=== PATIENT | male | born 1960 | race Caucasian/White ===

== ENCOUNTER 2022-03-13 06:58 | Observation (INO) ==
--- NOTE | 2022-03-13 07:30 | History & Physical Bridge Note ---
Date of Service March 13, 2022 History & Physical Bridge Note I have examined the patient, reviewed the History & Physical and in the interval since the performance of the History & Physical I have noted the following changes of clinical significance: no changes noted
--- NOTE | 2022-03-13 07:34 | Pre Anesthesia Assessment ---
Date of Service March 13, 2022 Pre Sedation Assessment Vital Signs Pulse Resp BP Pulse Ox O2 Del Method 03/13/22 07:11 76 16 136/96 98 Room Air Cardiovascular + regular rate and + regular rhythm + S1 normal and + S2 normal; no murmur no JVD and no carotid bruit no edema Respiratory normal respiratory effort, lungs clear to auscultation Pre-Sedation Airway Assessment Smoking Status: Former smoker Hx Sleep Apnea: No Short, Thick Neck: No Thyromental Distance: > or= 3.5 Finger Breadths Oral Cavity: + WNL Mallampati Class: III ASA: ASA3 NPO Status Date of Last Intake of Fluids: 03/13/22 Time of Last Intake of Fluids: 06:00 Date of Last Intake of Solid Food: 02/12/22 Time of Last Intake of Solid Foods: 21:00 Procedure Planning Contraindications for Sedation: none Current Medications Reviewed: Yes Notes The planned sedation has been discussed with the patient. Informed Consent was obtained. I have identified the patient, determined the appropriateness of sedation and have assessed the patient immediately prior to the procedure. All medicine(s) and interventions are by my order.
[2022-03-13] MEDS ORDERED: niCARdipine HCL INJ 2.5 MG/ML 10 ML AMP ONE (07:42)
[2022-03-13] MEDS ORDERED: HEPARIN (PORCINE) 1000 UNIT/ML 10 ML (CATH LAB USE ONLY) ONE (07:42)
[2022-03-13] MEDS ORDERED: fentaNYL citrate 100 MCG/2 ML VIAL ONE (07:43)
[2022-03-13] MEDS ORDERED: MIDAZOLAM HCL 1 MG/ML 2ML VIAL ONE ×2 (07:44→08:59)
[2022-03-13] MEDS ORDERED: NITROGLYCERIN/D5W 100MCG/ML 20ML SYR ONE (07:45)
--- NOTE | 2022-03-13 09:28 | Post Anesthesia Assessment ---
Date of Service March 13, 2022 Post Sedation Assessment Vital Signs Pulse Resp BP Pulse Ox O2 Del Method 03/13/22 07:11 76 16 136/96 98 Room Air Recovery Score Activity: Moves 4 extremities Respiration: Deep Breath/Cough Circulation: +/-20% PreAnes Value Oxygen Saturation: > 92% On Room Air Discharge Sedation Level of Care: Phase I Post Sedation Plan On clinical assessment, the patient appears to have tolerated the sedation without complications. Patient is recovering as anticipated. Patient will continue to be monitored by nursing and may be discharged when sedation discharge criteria are met per below protocol. Upon Completions of procedure up to 15 minutes continue every 5 minute vital signs and the P.A.R. score; then discharge to a Phase I or Fast Track to Phase II per the following guidelines: * Discharge Patient to appropriate Phase II area if PAR is 8 or greater or return to pre- procedure baseline. The post - procedure orders will be as directed. * If PAR score is less than 8 or not return to pre-procedure baseline then patient will follow Phase I monitoring till PAR is reached for Phase II. The Phase I may be done in procedure room or may call to secure a Phase I area. * If naloxone or flumazenil are used for reversal, hold in Phase I for continued monitoring from when last reversal dose was given for a minimum of 60 minutes or longer pending the nurse and/or physician discretion of patient condition before discharge to Phase II. Please call the Sedation Physician to re-evaluate and complete post-note for discharge to Phase II area. Do NOT discharge from procedure sedation or Phase 1 until post- sedation evaluation note is complete by procedure /sedation MD Sedation Discharge Instructions to be given to the patient at discharge to home.
[2022-03-13] MEDS ORDERED: TICAGRELOR 90 MG TAB ONE (09:33)
--- NOTE | 2022-03-13 09:41 | Cardiac Catheterization ---
Cardiac Cath Procedure Full Procedure Date March 13, 2022 Pre-Procedure Diagnosis Pre-Procedure Diagnosis: Angina and Positive Stress Test AUC Score AUC Score: 7 Post-Procedure Diagnosis Post-Procedure Diagnosis: Severe CAD and Normal Intracardiac Pressures Procedure(s) Performed Procedure(s) Performed: Coronary Angiography and Left Heart Cath Receiving Inspector Conner Bautista DO Flat Folding Machine Operator(s) Ryan RTTita Estimated Blood Loss Estimated Blood Loss: 5cc Medication(s) Medication(s): Fentanyl, Heparin, Lidocaine 1%, Nicardipine, Nitroglycerin and Versed Summary of Findings Severe proximal LAD, 99% Hemodynamics Rest Ao:: 87/57/70 Final Ao: 97/54/73 LV: 97/-3/8 Recommendations Recommendations: PCI without planned CABG Specimens Specimens: None Radiation Exposure (mGy) 649 Contrast (mls) 25 Fluids (cc crystalloids) Fluids (cc crystalloids): 105 Nss Drains Drains: N/A Anesthesia Moderate sedation. Start 0841. End 0856. Sedation monitor: Lorri WINN. Procedural Complication(s) None Disposition Process Improvement Engineer Holding/Recovery I attest to the content of the Intraoperative Record and any orders documented therein. Any exceptions are noted below. ACC Data: Process Improvement Engineer Cardiac Status Clinical evaluation leading to the procedure Schedule patient present for outpatient evaluation due to chest discomfort. Exercise stress echo demonstrating LAD territory ischemia. CAD Presenation: Stable angina Anginal Classification: CCS II Heart Failure: No Stress Echocardiogram: Yes - Positive and Risk/Extent of Ischemia (High) Coronary Anatomy Dominant: Right Left Main (% Stenosis): Normal LAD (% Stenosis): Proximal (99%) and Mid (20%) D1 (% Stenosis): Mid (10%) D2 (% Stenosis): Mid (Mild luminal irregularities, 10%, Small vessel.) Circumflex (% Stenosis): Proximal (10%) OM1 (% Stenosis): Mid (50%, small vessel) RCA (% Stenosis): Proximal (20%), Mid (30%) and Distal (20%) R PDA (% Stenosis): Distal (30%) R PL1 (% Stenosis): Normal R PL2 (% Stenosis): Normal Ramus (% Stenosis): Normal Diagnostic Physicians Name: Conner Bautista DO Closure Device Recommendations: PCI without planned CABG Intraprocedure Events Significant Disection: No Perforation: No
--- NOTE | 2022-03-13 09:50 | Post Anesthesia Assessment ---
Date of Service March 13, 2022 Post Sedation Assessment Vital Signs Pulse Resp BP Pulse Ox O2 Del Method 03/13/22 07:11 76 16 136/96 98 Room Air Recovery Score Activity: Moves 4 extremities Respiration: Deep Breath/Cough Circulation: +/-20% PreAnes Value Consciousness: Fully Awake Oxygen Saturation: > 92% On Room Air Discharge Sedation Level of Care: Phase I Post Sedation Plan On clinical assessment, the patient appears to have tolerated the sedation without complications. Patient is recovering as anticipated. Patient will continue to be monitored by nursing and may be discharged when sedation discharge criteria are met per below protocol. Upon Completions of procedure up to 15 minutes continue every 5 minute vital signs and the P.A.R. score; then discharge to a Phase I or Fast Track to Phase II per the following guidelines: * Discharge Patient to appropriate Phase II area if PAR is 8 or greater or return to pre- procedure baseline. The post - procedure orders will be as directed. * If PAR score is less than 8 or not return to pre-procedure baseline then patient will follow Phase I monitoring till PAR is reached for Phase II. The Phase I may be done in procedure room or may call to secure a Phase I area. * If naloxone or flumazenil are used for reversal, hold in Phase I for continued monitoring from when last reversal dose was given for a minimum of 60 minutes or longer pending the nurse and/or physician discretion of patient condition before discharge to Phase II. Please call the Sedation Physician to re-evaluate and complete post-note for discharge to Phase II area. Do NOT discharge from procedure sedation or Phase 1 until post- sedation evaluation note is complete by procedure /sedation MD Sedation Discharge Instructions to be given to the patient at discharge to home. [facility] Procedure Codes (Charges) Indication for Procedure Indication for procedure: angina, severe CAD Sedation/Anesthesia Procedure 1: Sedation/Anesthesia: 12276 Mod Sedation by the same physician;Init15 Min Child Age 5 & Up (15 min)
[2022-03-13] MEDS ORDERED: LIDOCAINE 1% LOCAL 20 ML VIAL ONE (09:53)
--- NOTE | 2022-03-13 10:03 | Cardiac Catheterization ---
[facility] Data: Music Sound Light Technician Cardiac Status Clinical evaluation leading to the procedure CAD Presenation: Positive Stress Test and Stable angina Anginal Classification: CCS III Heart Failure: No Cardiogenic Shock within 24 Hours: No Cardiac Arrest within 24 Hours: No Stress Echocardiogram: Yes - Positive Coronary Anatomy Dominant: Right LAD (% Stenosis): Proximal (90+ percent) Diagnostic Physicians Name: Michael Colmenares MD, PhD Closure Device Percutaneous Entry Location: Radial Closure Device: Radial Band Recommendations: PCI without planned CABG PCI Indication: + Stress Test Lesion Segment Name: Proximal LAD Culprit Artery: Yes Stenosis Prior to Rx (%): 95+ Chronic Total Occlusion: No Pre-Procedure AVANI Flow: 1 Previously Treated Lesion: No Lesion Complexity: Non-High/Non-C Lesion Length (mm): 12 Thrombus Present: No Bifurcation Lesion: No Guidewire Across Lesion: Yes Cardiac Cath Procedure Full Procedure Date March 13, 2022 Pre-Procedure Diagnosis Pre-Procedure Diagnosis: Angina and Positive Stress Test AUC Score AUC Score: 8 Post-Procedure Diagnosis Post-Procedure Diagnosis: Severe CAD and Normal Intracardiac Pressures Procedure(s) Performed Procedure(s) Performed: Drug Eluting Stent Door Frame Assembler Machine Michael Colmenares MD, PhD Doctor Of Radiology(s) Ryan RTR Estimated Blood Loss Estimated Blood Loss: 5cc Medication(s) Medication(s): Fentanyl, Heparin, Lidocaine 1%, Nicardipine, Nitroglycerin and Versed Summary of Findings Brief description: Patient was already prepped and draped in a sterile fashion. He had undergone diagnostic coronary angiography performed by Dr. Conner Bautista. There was a 6 Sudan[place] radial artery sheath in place. Patient had received heparin IV. Coronary angiography was reviewed with Dr. Bautista and decision was made to proceed with PCI of the proximal LAD. Patient was provided additional sedation. He was also provided additional IV heparin and the ACT was checked intermittently to assure therapeutic ACT. PCI was undertaken using a 6 [place] EBU 3.0 guide catheter, and a BMW universal guidewire was advanced and positioned distally in the LAD. Lesion was predilated with a 2.0 x 12 mm balloon inflated multiple times up to 14 soham. A 3.0 x 18 mm drug-eluting stent was then advanced and positioned across the lesion. This was deployed at 16 soham. (3.16 mm final diameter) The mid and proximal stent were postdilated using a 3.25 x 8 mm noncompliant balloon. 12 soham utilized in the midsegment (3.25 final diameter) and 16 soham in the proximal segment. Noncompliant balloon was removed. Guidewire was removed. Final angiographic evaluation was performed in orthogonal views. Radial artery sheath was removed. Hemostasis was obtained using a TR band. Patient remained hemodynamically stable and asymptomatic. He was provided Brilinta 180 mg p.o. loading dose. Had already received aspirin 325 mg. He was returned to the recovery area. PCI findings: 0% residual stenosis in the proximal LAD post PCI with implantation of a drug- eluting stent. AVANI-3 flow post PCI No evidence of dissection or perforation post PCI Recommendations: 1. Dual antiplatelet therapy with aspirin 81 mg daily and Brilinta 90 mg p.o. twice daily for at least 1 but up to 2 years duration. 2. Guideline directed medical therapy for secondary prevention of coronary disease to include; low-dose aspirin, high intensity statin therapy, beta- lonnie, plus or minus [place] inhibitor/ARB. Hemodynamics Rest Ao:: 108/65 mmHg, mean 79 mmHg Final Ao: 101/64 mmHg, mean 80 mmHg LV: Not performed Recommendations Recommendations: PCI without planned CABG Specimens Specimens: None Radiation Exposure (mGy) 1003 and 37 mGy, fluoroscopy time 7.0 minutes Contrast (mls) 75 mL Fluids (cc crystalloids) Fluids (cc crystalloids): 105 Nss Drains Drains: N/A Anesthesia 2 mg IV Versed, 37.5 mcg IV fentanyl Procedural Complication(s) None Disposition Music Sound Light Technician Holding/Recovery I attest to the content of the Intraoperative Record and any orders documented therein. Any exceptions are noted below. [facility] Card Cath Procedure Codes Stenting Procedure 1: Cardiovascular Stent Procedures: 56796 Perc transcatheter placement of intracoronary stent(s), with ang PG Care Time/CCT Total # of Minutes Spent Total Time Spent with Patient: Total time spent is greater than 50% in coordination of care (as documented) at patient's floor/unit and/or counseling patient:
[2022-03-13] MEDS ORDERED: ACETAMINOPHEN 325 MG TAB PO PRN (13:22)
[2022-03-13] MEDS ORDERED: ROSUVASTATIN CALCIUM 20 MG TAB PO SCH (21:00)
[2022-03-13] MEDS: TICAGRELOR 90 MG TAB PO SCH (21:06)
[2022-03-14 05:22] LABS: Basophils # (auto) 0.04 K/uL (0-0.2); Basophils % (auto) 0.4 %; Eosinophils # (auto) 0.51 K/uL (0-0.50); Eosinophils % (auto) 5.3 %; Hematocrit (blood only) 41.5 % (40.1-51.0); Hemoglobin 14.2 g/dl (14.0-18.0); Immature Granulocytes # (auto) 0.03 K/uL (0.00-0.02); Immature Granulocytes % (auto) 0.3 %; Lymphocytes # (auto) 2.56 K/uL (1.2-3.4); Lymphocytes % (auto) 26.4 %; Mean Corpuscular Hemoglobin 29.5 pg (25.0-34.0); Mean Corpuscular Hgb Conc 34.2 g/dL (32.0-36.0); Mean Corpuscular Volume 86.1 fL (80.0-100.0); Mean Platelet Volume 10.8 fL (9.4-12.4); Monocytes # (auto) 0.65 K/uL (0.24-0.82); Monocytes % (auto) 6.7 %; Neutrophils # (auto) 5.89 K/uL (1.4-6.5); Neutrophils % (auto) 60.9 %; Platelet Count 233 K/uL (130-400); RDW Coefficient of Variation 12.1 % (11.5-14.5); RDW Standard Deviation 38.2 fL (36.4-46.3); Red Blood Count 4.82 M/uL (4.63-6.08); White Blood Count 9.68 K/ul (4.8-10.8)
[2022-03-14 05:40] LABS: BUN Creatinine Ratio 16.5 (10-20); Calcium 9.1 mg/dl (8.5-10.1); Est GFR (African American) 111.5 ml/min; Est GFR (Non-African American) 96.2 ml/min
[2022-03-14] MEDS: TICAGRELOR 90 MG TAB PO SCH (08:21)
[2022-03-14] MEDS ORDERED: OMEGA-3 (PURIFIED FISH OIL) 1 GM CAP PO SCH (09:00)
[2022-03-14] MEDS ORDERED: DORZOLAMIDE/TIMOLOL 22.3/6.8MG/ML 10 ML BTL OP SCH (09:00)
[2022-03-14] MEDS ORDERED: MULTIVITAMIN TAB PO SCH (09:00)
[2022-03-14] MEDS ORDERED: ASPIRIN 81 MG ECTAB PO SCH (09:00)
--- NOTE | 2022-03-14 11:48 | Cardiology Progress Note ---
Date of Service March 14, 2022 Assessment & Plan (1) CAD (coronary artery disease), [place] coronary artery: (2) Status post insertion of drug-eluting stent into left anterior descending (LAD) artery: (3) Dyslipidemia, goal LDL below 70: Plan 61-year-old patient presented for outpatient coronary angiography 03/13/2022 secondary to abnormal exercise stress echo suggesting LAD territory ischemia. A 99% proximal LAD stenosis was treated with a single drug-eluting stent without complication. Recommend continue dual antiplatelet therapy uninterrupted for minimum of 1 year. Rosuvastatin titrated to 40 mg daily. Patient provided with outpatient prescriptions. Post procedural activity restrictions reviewed. All questions answered to patient satisfaction. Recommendations also discussed with his via telephone. He will be discharged to home today. Cardiology follow-up as scheduled 03/31/2022. Admission and Anticipated Discharge Date Admission Date: March 13, 2022 Subjective Patient seen examined the bedside. Feeling well overnight. No dysrhythmias on telemetry. Denies chest pain or unusual shortness of breath. Mild right anterior wrist discomfort noted. No ecchymosis or hematoma. Review of Systems Review of Systems: All systems reviewed & are unremarkable except as noted in Subjective Physical Exam Constitutional: well nourished; no acute distress and not ill appearing ENMT: Mallampati Class: III Respiratory: normal respiratory effort, lungs clear to auscultation Cardiovascular: Rate/Rhythm: regular rate and regular rhythm Heart Sounds: normal S1 and normal S2; no murmur Vessels: radial pulses present; no JVD and no carotid bruit Extremities: no edema Gastrointestinal (Abdomen): Inspection/Auscultation: abdomen normal to inspection; abdomen not distended Neurologic: CN's II-XI intact bilaterally and moves all extremities; no focal motor deficits Results & Data ([facility]) Vital Signs (Past 12 Hours) Vital Signs Temp Pulse Pulse Resp BP BP Pulse Ox 03/14/22 11:09 36.7 C 77 16 124/79 95 03/14/22 09:00 70 16 95 03/14/22 09:00 117/71 03/14/22 08:00 73 17 03/14/22 08:00 126/66 03/14/22 07:00 59 L 14 97 03/14/22 07:00 123/75 03/14/22 09:10 36.7 C 03/14/22 09:09 16 03/14/22 04:00 58 L 16 94 03/14/22 04:00 93/49 L 03/14/22 03:00 107/70 03/14/22 03:00 59 L 13 94 03/14/22 02:00 58 L 13 94 03/14/22 02:00 96/58 L 03/14/22 01:00 117/74 03/14/22 01:00 58 L 17 95 03/14/22 00:00 56 L 10 L 97 03/14/22 00:00 115/69 03/14/22 00:00 61
--- NOTE | 2022-03-14 11:49 | Discharge Summary ---
Date of Service March 14, 2022 Admission HPI Per Admitting Provider 61-year-old patient with exertional dyspnea and reduced stamina presented for outpatient stress testing. Exercise stress echo demonstrating anterior ischemia. Patient referred for diagnostic cardiac catheterization. Principal Diagnosis Coronary artery disease status post drug-eluting stent implantation to the left anterior descending artery. Discharge Exam Constitutional well nourished; no acute distress and not ill appearing [facility] Mallampati Class: III Respiratory normal respiratory effort, lungs clear to auscultation Cardiovascular Rate/Rhythm: regular rate and regular rhythm Heart Sounds: normal S1 and normal S2; no murmur Vessels: radial pulses present; no JVD and no carotid bruit Extremities: no edema Gastrointestinal (Abdomen) Inspection/Auscultation: abdomen normal to inspection; abdomen not distended Neurologic CN's II-XI intact bilaterally and moves all extremities; no focal motor deficits Discharge Data Allergies Allergy/AdvReac Type Severity Reaction Status Date / Time No Known Allergies Allergy Unverified 03/13/22 07:18 Procedures Performed Operation Date: 03/13/22 08:00 Actual Procedures s Cineradiography w/Routine Exam - Conner Bautista DO s Drug Eluting Stent SGl Vessel - Conner Bautista DO p Cath, Left with Cors and Vent - Conner Bautista DO Ordered Studies 03/13/22 06:38 CL Cath Imgs for PACS use only Routine Hospital Course (1) CAD (coronary artery disease), [place] coronary artery: (2) Status post insertion of drug-eluting stent into left anterior descending (LAD) artery: (3) Dyslipidemia, goal LDL below 70: Plan 61-year-old patient presented for outpatient coronary angiography 03/13/2022 secondary to abnormal exercise stress echo suggesting LAD territory ischemia. A 99% proximal LAD stenosis was treated with a single drug-eluting stent without complication. Recommend continue dual antiplatelet therapy uninterrupted for minimum of 1 year. Rosuvastatin titrated to 40 mg daily. Patient provided with outpatient prescriptions. Post procedural activity restrictions reviewed. All questions answered to patient satisfaction. Recommendations also discussed with his via telephone. He will be discharged to home today. Cardiology follow-up as scheduled 03/31/2022. Total Time Total Time Spent Total Time Spent (In Minutes): 30 Discharge Plan Discharge Items Patient Disposition: Home - Self-Care Reason For Visit: Abnormal Stress Test,CAD S/P AD PCI Discharge Diagnosis: Coronary artery disease status post drug-eluting stent implantation to the left anterior descending artery. Condition on Discharge: Good Activity: Per Instructions section Non-emergency contact: Pupil Personnel Services Director Call non-emergency contact if: you have any medication questions and your pain is not controlled Follow-up/Referrals: Santos Dodd DO [Primary Care Provider] - 03/21/22 1:40 pm (follow up appointment: March 21, 2022 @ 1:40pm ) Diet: Heart Healthy Addtl Attending Provider Instructions: ACTIVITY RECOMMENDATIONS: It is common to feel weak and fatigue for a few days. * Do not drive or operate any motorized equipment for the next three days. * Limit stair usage (2 or 3 trips a day only) for the next three days. * Do not lift anything heavier than 10 pounds for the next three days. * Do not engage in vigorous exercise or any sports for the next five days. * You may shower the day after your procedure, but do not immerse the area for three days. Cleanse the site gently with soap and water. SPECIAL CARE INSTRUCTIONS: * You may replace the pressure dressing or band-aid the morning after the procedure. * After your procedure, it is normal to have a small bruise or small lump at the site. Examine your site daily for any change in the bruise or lump, redness, swelling, drainage or numbness. Notify your doctor if any change. BLEEDING: * If there is a small amount of bleeding at the site, lie down and apply firm pressure with a clean cloth for ten minutes. When the bleeding stops, lie quietly keeping the procedure limb straight for six hours. Notify your doctor as soon as possible. * If the bleeding does not stop after ten minutes or if there is a large amount of bleeding or spurting, call 911 immediately. Continue to lie down and hold firm pressure until help arrives. SKIN IRRITATION: * You may experience some redness and/or swelling in the area where radiation was administered. If any skin irritation occurs, please contact your family physician. FOLLOW UP VISIT: Keep any scheduled doctor appointments. Cardiology follow-up as scheduled at [facility] 03/31/2022. Pending Studies at Discharge: No Stand-Alone Forms: My uTaP, Smoking Cessation Medications and DC Order Prescriptions: New Brilinta 90 mg Tablet 90 mg PO BID Qty: 60 6RF aspirin 81 mg Tablet,Delayed Release (Dr/Ec) 81 mg PO QAM Qty: 6 0RF rosuvastatin [Crestor] 20 mg Tablet 40 mg PO HS Qty: 30 0RF dorzolamide-timolol 22.3-6.8 mg/mL Drops 1 drp ophthalmic (eye) DAILY Qty: 10 0RF Continued multivitamin Tablet 1 tab PO DAILY calcium 500 mg Tablet 500 mg PO DAILY aspirin 81 mg Tablet,Delayed Release (Dr/Ec) 81 mg PO DAILY omega [id number] oil 900-1,400 mg Capsule,Delayed Release(Dr/Ec) 1 cap PO DAILY Discontinued rosuvastatin 10 mg Tablet 10 mg PO DAILY Discharge Orders: Discharge Order (Routine); Ordered 03/14/22 Ordered By: Conner Bautista Admission Data Admit Date/Time: 03/13/22 10:07 Attending Provider: Conner Bautista Admit Provider: Conner Bautista Primary Care Provider: Santos Dodd Other Interventions: Discharge Summary Assessment (RN) Last Done: 03/14/22 11:09
== END 2022-03-14 11:50 | disposition home or self-care (01) ==
LOC: CC 06:58 → 1E 06:58